=== PATIENT | female | born 1965 | race Hispanic/Latino ===

== ENCOUNTER 2021-04-30 08:04 | Outpatient (CLI) | payer BC ==
--- NOTE | 2021-04-30 09:36 | Mammography Report ---
BILATERAL DIGITAL DIAGNOSTIC MAMMOGRAM WITH CAD WITH TOMOSYNTHESIS -- 04/30/2021 LEFT LIMITED BREAST ULTRASOUND INDICATION: Pain around left nipple with bloody left nipple discharge. History of left granulomatous mastitis. TECHNIQUE: Digital bilateral mammographic imaging was performed. Limited ultrasound was performed. T his examination was interpreted with the benefit of Computer-Aided Detection (CAD) analysis. COMPARISON: Left breast ultrasound performed on 02/20/2021. FINDINGS: Breast Density: The breasts are heterogeneously dense, which may obscure small masses. MAMMOGRAPHIC FINDINGS: There is no evidence of dominant mass, suspicious calcifications or architectu ral distortion in either breast. Scarring is noted along the 12:00 position of the right breast anter iorly. There are bilateral benign-appearing calcifications with a biopsy clip seen in the 2:00 positi on middle depth of the left breast. ULTRASOUND FINDINGS: Targeted ultrasound evaluation was performed of the area of interest. This exa m is limited by suboptimal technique. Shadowing from the nipple limits visualization of the retroareo lar region. No significant abnormality is visualized. IMPRESSION: No mammographic evidence of malignancy. Limited left breast ultrasound without visualization of a sig nificant abnormality. Given the patient's history of bloody left nipple discharge, a breast MRI would be helpful for further evaluation. Follow up recommendation: Breast MRI BI-RADS Category 0: Incomplete. Needs additional imaging evaluation and/or prior mammograms for herminia rison. A "normal" or negative report should not discourage follow up or biopsy of a clinically significant f inding. A written summary of these findings will be mailed to the patient. The patient will be entered into a mammography reporting system which will generate a reminder letter for the patient's next appointmen t at the appropriate interval. According to the [employer], yearly mammograms are recommended starting at age 40 and continuing as long as a woman is in good health. Breast MRI is recommended for women with an letty roximately 20-25% or greater lifetime risk of breast cancer, including women with a strong family his tory of breast or ovarian cancer and women who have been treated for Hodgkin's disease. Signer Name: Calvin Moffett MD Signed: 04/30/2021 9:31 AM Workstation Name: [email or web address]
== END 2021-04-30 08:05 | disposition home or self-care (01) ==
LOC: SPVWC 08:04
PROVIDERS: ATTEND Surgery
DX: N61.22 Granulomatous mastitis, left breast (principal); R92.8 Other abnormal and inconclusive findings on diagnostic imaging of breast
CPT/HCPCS: 77066